=== PATIENT | male | born 1970 | race Caucasian/White ===

== ENCOUNTER → 2019-09-27 | Outpatient (CLI) | payer OTHER ==
--- NOTE | 2019-09-28 08:38 | REP ---
MRI lumbar spine without contrast: Repeat dictation. History: Question herniated disc. Or stenosis. Preliminary report is provided at the time of the exam by Sandra Romo. No comparison imaging. Technique: Sagittal and axial T1 and T2-weighted scans are acquired in the usual fashion with and without fat saturation. Sequences include spin echo, turbo spin-echo, and STIR imaging sequences. MRI findings: Lumbar vertebral body heights are preserved. Alignment is normal. The tip of the conus medullaris is normal in position and appearance at the T12-L1 level. At L5-S1, there is mild bilateral facet hypertrophy. No disc protrusion or foraminal narrowing is seen. There is no evidence of spondylolysis or spondylolisthesis. There is mild discogenic spurring anteriorly. At L4-5, there is minimal facet hypertrophy. No other abnormality is seen. The L3-4 disc shows slight narrowing and minimal disc bulging. No spinal stenosis or foraminal narrowing is seen. No disc herniation is seen. The L2-3 and L1-2 disc levels are unremarkable. Impression: No evidence of central canal stenosis or foraminal narrowing. No disc herniation is seen. Mild facet hypertrophy and degenerative disc changes as noted above. Electronically Signed by Ihsan Alvarez MD 09/28/2019 04:45 P
== END ==
LOC: M RAD 17:10
PROVIDERS: ATTEND Physician Assistant
DX: M51.36 Other intervertebral disc degeneration, lumbar region (principal)